=== PATIENT | male | born 1990 | race Caucasian/White ===

== ENCOUNTER 2022-10-29 06:29 | Emergency (ER) | payer OTHER ==
[~2022-10-29] VITALS: Ht 180.3 cm; Wt 77.4 kg
[2022-10-29] MEDS ORDERED: PROTONIX40 MG PO (06:55)
--- OUTSIDE RECORDS SUMMARY | 2022-10-29 11:52 | XMS ---
PreManage Notification: KAILA CONTRERAS Security Wet Process Head Miller Events No recent Security Events currently on file CRITERIA MET - [facility] CLARISSA LARA Nurse Practitioner: Psychiatric/Mental Health Current PHONE: [phone] ADRIANNA LEE Nurse Practitioner Current PHONE: Unknown Dany has no Care Guidelines for this patient. Alexey VISIT COUNT (12 MO.) 6 Verna Yuan TOTAL 7 NOTE: Visits indicate total known visits. ED/UCC VISIT TRACKING (12 MO.) 10/29/2022 06:31 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 - post opp issue/ABD Pain/SOB 10/06/2022 16:06 [facility] [place] TYPE: Emergency DIAGNOSES: - post op drain tube issues - Wound Check - Encounter for other specified aftercare 09/30/2022 18:47 [facility] [place] [place] TYPE: Emergency DIAGNOSES: - abn pain - Left lower quadrant pain - Abdominal Pain 09/27/2022 15:29 [facility] [place] [place] TYPE: Emergency DIAGNOSES: - Abdominal Pain - Unspecified abdominal pain - Nausea with vomiting, unspecified 05/02/2022 14:19 [facility] [place] [place] TYPE: Emergency DIAGNOSES: - abscess - Other hemorrhoids - Abscess (Complicated) [facility] 08[facility] DIAGNOSES: - pain in LT shoulder - Unspecified injury of muscle(s) and tendon(s) of the rotator cuff of left shoulder, initial encounter - Shoulder Pain INPATIENT VISIT TRACKING (12 MO.) 10/01/2022 23:26 [facility] [place] TYPE: Inpatient DIAGNOSES: - Chronic or unspecified duodenal ulcer with perforation [facility] [place] [facility] DIAGNOSES: - Chronic or unspecified duodenal ulcer with perforation [email or web address]
== END 2022-10-29 11:56 | disposition home or self-care (01) ==
LOC: ED 06:29
DX: G89.18 Other acute postprocedural pain (principal); R10.32 Left lower quadrant pain; Z20.822 Contact with and (suspected) exposure to COVID-19
CPT/HCPCS: 36415; 74177; 80053; 81003; 83690; 85025; 87502; 96375; 99284-25; C9803; J2270; J2405; J7030; Q9967; U0003